=== PATIENT | female | born 1930 | race Caucasian/White ===

== ENCOUNTER → 2018-01-31 | Outpatient (CLI) | payer MEDICARE ==
[~2018-01-31] MED LIST: AC325T PO; ACHD5005 PO; CHOL200025 PO; DCS100C PO; ENXP40I.4 SC; LVT.05T PO; POLY17PO23 PO; THYROID PILL; VITAMIN D
--- NOTE | 2018-01-31 15:52 | Diagnostic Imaging Report ---
INDICATION: Low back pain. Lumbar spine. FINDINGS: AP and lateral views of the lumbar spine show superior endplate compression deformities of L2 and L3. These may be secondary to Schmorl's nodes. Vertebral body alignment and height are normal. There is slight disc space narrowing at L2-L3 and minimally of L1-L2. IMPRESSION: Disc space narrowing at L1-L2 and L2-L3 with probable Schmorl's nodes herniating through superior endplates of L2 and L3. Dictated by: Dictated on workstation # [id number]
== END ==
LOC: RAD 14:09
PROVIDERS: ATTEND Nurse Practitioner Family
DX: M51.36 Other intervertebral disc degeneration, lumbar region (principal)
CPT/HCPCS: 72100